=== PATIENT | male | born 1985 | race African-American/Black ===

== ENCOUNTER 2016-10-12 12:57 | Emergency (ER) | payer OTHER ==
[~2016-10-12] VITALS: Ht 180.3 cm; Wt 109.1 kg
[2016-10-12] MEDS ORDERED: IBUPROFEN 800 MG TABLET PO ONE (14:15)
[2016-10-12 14:53] VITALS: BP 128/71
== END 2016-10-12 14:54 | disposition home or self-care (01) ==
LOC: EMS 13:00
DX: S83.422A Sprain of lateral collateral ligament of left knee, initial encounter (principal); F17.210 Nicotine dependence, cigarettes, uncomplicated; X58.XXXA Exposure to other specified factors, initial encounter; Y93.89 Activity, other specified; Y92.89 Other specified places as the place of occurrence of the external cause; Y99.8 Other external cause status
CPT/HCPCS: 99283